=== PATIENT | male | born 2000 | race African-American/Black ===

== ENCOUNTER 2022-04-16 20:16 | Emergency (ER) | payer MEDICAID ==
[~2022-04-16] VITALS: Ht 188 cm; Wt 91.7 kg
[2022-04-16 21:41] VITALS: BP 117/76
[2022-04-17] MEDS ORDERED: FLUORESCEIN SODIUM 1MG/STRIP BOTHEYE ONE (00:15)
[2022-04-17] MEDS ORDERED: TETRACAINE 0.5% OPHTH DROPS 4ML BOTHEYE ONE (00:15)
== END 2022-04-17 03:04 | disposition home or self-care (01) ==
LOC: ER 20:16
DX: H53.8 Other visual disturbances (principal)
CPT/HCPCS: 99283

== ENCOUNTER 2025-10-06 14:57 | Emergency (ER) | payer OTHER ==
[~2025-10-06] VITALS: Ht 185.4 cm; Wt 75.0 kg
[2025-10-06 15:35] VITALS: O2SAT 98
[2025-10-06] MEDS: IBUPROFEN 800MG TABLET PO ONE (18:18)
[2025-10-06] MEDS: CYCLOBENZAPRINE 10MG TABLET PO ONE (18:19)
[2025-10-06] MEDS: LIDOCAINE 5% PATCH TOP STA (18:19)
[2025-10-06] MEDS ORDERED: CYCL10TA21 MT (18:28)
[2025-10-06] MEDS ORDERED: IBUP-1455 MT (18:28)
[2025-10-06] MEDS ORDERED: LIDO700A30 TP (18:28)
[2025-10-06 18:41] VITALS: BP 113/80; PULSE 61; RESP 15; TEMP 36.8; O2SAT 100
== END 2025-10-06 18:42 | disposition home or self-care (01) ==
LOC: ER 14:57
DX: G89.29 Other chronic pain (principal); M54.50 Low back pain, unspecified
CPT/HCPCS: 72100; 99284